=== PATIENT | male | born 1995 | race Caucasian/White ===

== ENCOUNTER 2023-11-04 15:37 | Emergency (ER) | payer BC, SELFPAY ==
[2023-11-04 15:39] VITALS: BP 173/112; PULSE 88; RESP 18; TEMP 36.1; O2SAT 100; BMI 35.0
--- NOTE | 2023-11-04 15:45 | NURSING ---
NO OLD EKGS
--- NOTE | 2023-11-04 15:49 | EKG12_ITS ---
Test Reason : CP Blood Pressure : / mmHG Vent. Rate : 073 BPM Atrial Rate : 073 BPM P-R Int : 162 ms QRS Dur : 098 ms QT Int : 388 ms P-R-T Axes : 024 012 013 degrees QTc Int : 427 ms Normal sinus rhythm with sinus arrhythmia Normal ECG Confirmed by GAB PAGE, ABBIE ([id number]), supervising film or videotape editor SUSAN AVENDANO ([id number]) on 11/05/2023 10:39:14 AM Referred By: Confirmed By:ABBIE DE GUZMAN MD
--- NOTE | 2023-11-04 15:51 | ED.VIS.CHEST ---
HPI History of Present Illness Chief Complaint: Chest Pain Detail of Chief Complaint: Burning sensation mid chest and left-sided chest pain Informant: patient Onset/Context/Timing Onset: Days Activity at onset: sudden and rest Timing: Intermittent (Varies in duration from 30 seconds up to 20 to 30 minutes) Quality: Positive for Dull Location: Left Chest Current Severity: Gone Maximum Severity: Moderate Worsened By: Nothing Relieved By: - (Resolves with activity) Associated Symptoms: Positive for - (Also complains of discomfort left shoulder); Negative for Nausea, Vomiting, Diaphoresis, Dyspnea, Cough, Fever, Lightheadedness, Acid Reflux or Palpitations Narrative Narrative: Patient is a 28-year-old male on no medication with no significant past medical history who presents with intermittent left-sided chest pain described as a dull sensation that occurs at rest resolves with activity and radiates to the left shoulder. He has had numerous episodes the last several days. He denies any associated symptoms. He also complains of a burning sensation in the middle of his chest. He denies history of reflux, hiatal hernia or peptic ulcer disease. There is no family history of coronary disease. There is family history of hypertension. Patient's last physical was 1 year ago. Initial blood pressure was elevated. Resolved with time. Patient denies history of PE or DVT. Patient has no risk factors for PE or DVT. He denies leg pain, swelling discoloration. Patient denies dyspnea, dyspnea on exertion, orthopnea or PND. Patient denies black or maroon-colored stool. Prior Similar Symptoms: No CVD Risk Factors: Negative for Hypertension, Diabetes, Hypercholesterolemia, Family History 1' </=55 or Smoking (Former) PE Risk Factors: Negative for Recent Travel/Surgery, Recent Immobilization, Prior DVT or PE, Cancer or OCP + Smoking + >/=35 TAD Risk Factors: Negative for Marfan's Syndrome, Hypertension or Family History PFSH PFSH Medical History no medical history no medical history Allergy/AdvReac Type Severity Reaction Status Date / Time No Known Allergies Allergy Verified 11/04/23 15:38 Social History (Updated 11/04/23 @ 15:[address] Alfredo Davila MD) household members: spouse Smoking Status: Former smoker substance use type: does not use ROS ROS ED Constitutional Constitutional ED: Denies chills, fever(s), subjective, sweats or weight loss Eyes Eyes: Reports none ENT ENT ED: Denies rhinorrhea or sore throat Cardiovascular Cardiovascular: Reports as per HPI; Denies orthopnea or paroxysmal nocturnal dyspnea Respiratory/Chest Respiratory/Chest: Denies cough, dyspnea, dyspnea on exertion, orthopnea, paroxysmal nocturnal dyspnea, sputum or other Gastrointestinal Gastrointestinal: Denies abdominal pain, constipation, diarrhea, melena, nausea, vomiting or other Musculoskeletal Musculoskeletal: Denies arthralgias, back pain, myalgias or neck pain Integumentary Denies rash Neurologic Neurologic: Denies headache(s) or paresthesias Hematologic/Lymphatic Hematologic/Lymphatic: Denies easy bleeding or easy bruising EXAM Physical Exam Const Vital Signs: 11/04/23 15:39 Temperature 97 F L Temperature Source Temporal Pulse Rate 88 Respiratory Rate 18 Blood Pressure 173/112 H Blood Pressure Mean 132 Pulse Ox 100 Oxygen Delivery Method Room Air Positive well nourished, well developed and obese Constitutional Narrative: Patient's blood pressure is elevated 173/112. Will recheck in 15 minutes. General Appearance ED: well developed and NAD; Negative for pallor Nutritional Appearance: obese HEENT Reports moist mucous membranes normocephalic and atraumatic Eyes PERRL and EOMs intact bilaterally General Eye ED: Negative for pale conjunctiva or scleral icterus Neck no lymphadenopathy, supple and no JVD Neck Narrative: Trachea is midline. Chest Wall inspection of chest normal and palpation of chest normal Chest Narrative: There is no pain palpation of chest. Resp normal respiratory effort and clear to auscultation bilaterally Cardio regular rate, regular rhythm, S1 normal heart sound, S2 normal heart sound and no murmurs GI normal to inspection, nondistended, normoactive bowel sounds, soft to palpation, non-tender, non-distended and no masses; Negative for hepatosplenomegaly Extremity Extremity Narrative: There is no asymmetry, swelling, discoloration, leg vein distention, palpable cords or tenderness along the distribution of the deep venous system. Neuro oriented x3, CN's II-XII intact bilaterally and no sensory deficits noted Sensorium / Orientation: awake and alert Psych mental status grossly normal Skin no rashes or lesions noted and no wounds General Skin Exam: Negative for jaundice or pallor Heart Score History: Slightly/Non-Suspicious ECG: Normal Age: </= 45 years Risk Factors: 1 or 2 Risk Factors Score: 1 MDM MDM MDM Narrative Medical decision making narrative: Differential is cardiac versus noncardiac. Noncardiac would include reflux, esophagitis, gastritis, peptic ulcer disease, pulmonary disease. EKG, chest x-ray and troponin were ordered. CBC was not obtained since he does not have infectious symptoms and clinically is not anemic. History & Record Review Additional record(s) reviewed:: No prior records Lab Data Attestation: I reviewed the patient's lab results. Lab results narrative: Troponin is 4.This is normal. Labs: Laboratory Results - last 24 hr 11/04/23 16:05 Troponin I High Sens 4 Radiography Chest X-Ray - ED: 2 View, Read by ED Physician, Normal, Heart, Lungs, Mediastinum, Bony Structures and No Acute Disease Diagnostic Testing: Clinical Impression(s) from Imaging Studies Chest X-Ray 11/04/23 16:10 IMPRESSION: Normal x-ray examination of the chest. Electronically Signed: Farzad Ritchie MD at 16:20 EST Reading Location ID and State: [address] [place] [address] Tel , Service support , EKG Initial EKG: Interpretation: Sinus Rhythm (Rate is 73. The EKG is normal. OR interval is under 60 ms per cures duration 98 ms. QT duration 388 ms. Eugene is normal. The EKG is normal) Differential Diagnosis Chest pain/SOB: pulmonary embolism Reason(s) PE less likely: Positive for PERC negative, Well's <3, not tachycardic and not hypoxic, pneumothorax Reason(s) pneumothorax less likely: Positive for bilateral breath sounds and [employer]ER withhout PTX, pneumonia Reason(s) pneumonia less likely: Positive for no infiltrate on CXR, no noted fever and symptoms not consistent with acute infection and aortic dissection Reason(s) Aortic dissection less likely:: Positive for normal vascular exam, no history of HTN, normal neurological exam, no significant risk factors for dissection, no widened mediastinum on CXR, pain not sudden onset, no ripping/tearing pain and no pain to back Discharge Plan Triage Chief Complaint: Chest Pain ED Provider: Charli Davilao Dx/Rx/DC Orders Clinical Impression: Intermittent chest pain, Elevated blood pressure reading without diagnosis of hypertension Instructions: ED Chest Pain, Noncardiac, ED Hypertension, To Be Confirmed Primary Care Provider: Care Physician,No Primary Referrals: Rosie Martinez MD [Med Staff - Salad Chef] - 1-2 Weeks Care Physician,No Primary [Primary Care Provider] - Disposition Disposition: Home, Self Care
--- NOTE | 2023-11-04 16:10 | RAD_ITS ---
STUDY: X-RAY CHEST REASON FOR EXAM: Male, 28 years old. Chest pain TECHNIQUE: PA and lateral COMPARISON: None. FINDINGS: The lungs are clear and expanded. There is no demonstrated pleural abnormality. Normal size heart. Normal mediastinum and bud. Normal visualized pulmonary arteries. Normal visualized aortic arch and descending thoracic aorta. Normal visualized thoracic spine. Normal visualized ribs, clavicles, and shoulders. There is no demonstrated abnormality of the visualized soft tissue structures of the upper abdomen. RAD/Chest PA and Lateral IMPRESSION: Normal x-ray examination of the chest. Electronically Signed: Farzad Ritchie MD at 16:20 [facility] ,
[2023-11-04 16:44] LABS: Troponin-I HS 4 pg/mL (3.0-78.0)
[2023-11-04 17:11] VITALS: BP 119/81; PULSE 70; RESP 20; TEMP 36.3; O2SAT 99
== END 2023-11-04 17:12 | disposition home or self-care (01) ==
PROVIDERS: Emergency Provider Emergency Medicine; Visit Provider Emergency Medicine
DX: R07.9 Chest pain, unspecified (principal); R03.0 Elevated blood-pressure reading, without diagnosis of hypertension; E66.9 Obesity, unspecified; Z87.891 Personal history of nicotine dependence
CPT/HCPCS: 71046; 84484; 93005; 99284; A4216